=== PATIENT | female | born 1990 | race Caucasian/White ===

== ENCOUNTER 2016-10-07 22:12 | Inpatient (IN) | payer BC, OTHER ==
[~2016-10-07] VITALS: Ht 149.9 cm; Wt 49.9 kg
--- NOTE | 2016-10-07 22:25 | NUR ---
PREADMISSION NOTE Pt is a 26 y/o female being admitted for Heroin, Xanax, and Meth dependence and use. Pt denies having any allergies or seizure history. Pt is calm and cooperative with no signs of intoxication. Pt was informed about smoking passes and vital signs being taken every 4 hours. Pt verbalized an understanding. Pt was given an opportunity to ask questions and express any concerns. Vitals are as follows: 118/75 HR:83 R:18 T:98.6 O2 SAT: 100 % Pain: 0/10. Pt is in stable condition and will be accompanied to the 3rd floor where the rest of the admission process will continue.
[2016-10-07 23:04] LABS: *AMPHETAMINE, URINE POSITIVE (NEGATIVE); *BARBITURATE, URINE NEGATIVE (NEGATIVE); *CANNABINOID, URINE NEGATIVE (NEGATIVE); *COCCAINE, URINE NEGATIVE (NEGATIVE); *OPIATE, URINE POSITIVE (NEGATIVE); *PHENCYCLIDINE SCREEN,URINE NEGATIVE (NEGATIVE)
[2016-10-07 23:21] LABS: *URINE HCG, QUAL NEGATIVE (NEGATIVE)
[2016-10-07] MEDS ORDERED: MAGNESIUM HYDROXIDE 30 ML LIQUID UDC PO PRN (23:45)
[2016-10-07] MEDS ORDERED: ONDANSETRON 4 MG/2 ML VIAL IM PRN (23:45)
[2016-10-07] MEDS ORDERED: LORAZEPAM 1 MG TABLET PO PRN ×2 (23:45)
[2016-10-07] MEDS ORDERED: MIRALAX 17 GM POWD.PACK PO PRN (23:45)
[2016-10-07] MEDS ORDERED: HYDROXYZINE PAMOATE 25 MG CAPSULE PO PRN (23:45)
[2016-10-07] MEDS ORDERED: LORAZEPAM 2 MG/1 ML VIAL IM PRN (23:45)
[2016-10-07] MEDS ORDERED: METHOCARBAMOL 750 MG TABLET PO PRN (23:45)
[2016-10-07] MEDS ORDERED: ONDANSETRON ODT 4 MG TAB.RAPDIS SL PRN (23:45)
[2016-10-07] MEDS ORDERED: ACETAMINOPHEN 325 MG TABLET PO PRN (23:45)
[2016-10-07] MEDS ORDERED: IBUPROFEN 400 MG TABLET PO PRN (23:45)
[2016-10-07] MEDS ORDERED: LOPERAMIDE HCL 2 MG CAPSULE PO PRN ×2 (23:45)
[2016-10-07] MEDS ORDERED: DICYCLOMINE HCL 20 MG TABLET PO PRN (23:45)
--- NOTE | 2016-10-07 23:56 | NUR ---
ADMISSION NOTE Pt arrived ambulatory to the [facility] 3rd floor (accompanied by [facility] staff) at approximately 2247. Pt is a 26 y/o female being admitted for Heroin, Xanax, and Methamphetamine dependence and use. Pt denies having any allergies but reported a PMH of depression, anxiety, borderline personality disorder, and insomnia. Pt reported not having a primary care physician or a psych doctor at this time. Pt is unmarried with 2 children. Pt stated " I have my GED. I'm not working right now and I guess I'm homeless." Pt was recently jailed. MRSA was collected and sent to the lab for testing. Pt didn't arrive with any medications, but reported taking Wellbutrin, Lamictal, Remeron, and Trazodone. Pt stated " I haven't taken them in about 2 months." Pt was then asked about her substance use history including; what substance(s), frequency, route, amount, last date used, and last amount used. Pt stated " I started using Heroin 10 years ago, Meth 3 years ago, and Xanax 4 years ago. I use needles for the Heroin and Meth, but I just eat the Xanax (PO). For the past 8 months I've been using up to 2 grams of Heroin, half a gram of Meth (0.5 g) and 6 mg of Xanax a day. I had Heroin and Meth this morning. I used like 0.25 g of Heroin, and 0.2 g of Meth. I had 3 mg of Xanax yesterday (10/06/16). " Pt was asked about her most recent treatment history. Pt stated " I was here in [facility] in like March. Then I went to a sober living called [facility] for 20 days." Upon assessment pt is a/o x 4 with no changes in LOC. Pt's skin is dry and intact with no rashes, lesions, lacerations, bruises, and abrasions noted. Pt's breathing is even and unlabored. Lung auscultations clear in all lobes. Abdomen soft and non distended. Bowel sounds present in all 4 quadrants. PERRLA noted. Pt wears contacts. Skin turgor indicates adequate hydration and capillary refill is less than 3 seconds. Hand template cutter are strong bilaterally and pt ambulates independently with a steady gait. Pt has a flat affect, and is seemingly guarded, but is very polite and cooperative with plan of care. Pt denies any pain/discomfort at this time. Pt was encouraged to notify staff of any changes in condition or of any concerns. Pt verbalized an understanding. All safety measures in place; side rails up x 2, bed locked and in low position, and call light is within reach. Vitals are as follows: 118/75 HR:83 R:18 T:98.6 O2 SAT: 100 % Pain: 0/10 COW: 3 CIWA: 2 . Will continue to monitor.
[2016-10-08] VITALS: BP 112/62
[2016-10-08 01:27] LABS: BASOPHILS # (AUTO) 0.1 K/uL (0.0-8.0); BASOPHILS % (AUTO) 0.9 % (0.0-2.0); EOSINOPHILS # (AUTO) 0.2 K/uL (0.0-0.7); EOSINOPHILS % (AUTO) 2.4 % (0.0-7.0); HEMATOCRIT 36.3 % (37-47); HEMOGLOBIN 12.4 G/DL (12.0-16.0); LYMPHOCYTES # (AUTO) 3.9 K/UL (0.8-4.8); LYMPHOCYTES % (AUTO) 39.5 % (20.5-51.5); MEAN CORPUSCULAR HEMOGLOBIN 28.2 UUG (27.0-31.0); MEAN CORPUSCULAR HGB CONC 34 g/dL (32.0-37.0); MEAN CORPUSCULAR VOLUME 82.3 FL (81.0-99.0); MONOCYTES # (AUTO) 0.6 K/UL (0.1-1.30); MONOCYTES % (AUTO) 6.2 % (0.0-11.0); NEUTROPHILS # (AUTO) 5.2 K/UL (1.8-8.9); PLATELET COUNT (AUTO) 383 K/UL (150-450)
[2016-10-08] MEDS: CLONIDINE HCL 0.1 MG TABLET PO PRN (01:38)
--- NOTE | 2016-10-08 01:39 | NUR ---
CLONIDINE PRN ADMINISTRATION Pt stated " I feel anxious and restless. Can I have something to help me relax?" Clonidine 0.1 mg PO PRN was given. Pt was encouraged to notify staff of any changes in condition or of any concerns. Pt verbalized an understanding. All safety measures in place. Will monitor for effectiveness.
[2016-10-08 01:45] LABS: ETHANOL < 3 MG/DL (0-0)
[2016-10-08 01:54] LABS: ALANINE AMINOTRANSFERASE 16 U/L (14-59); ALKALINE PHOSPHATASE 80 U/L (50-136); AMYLASE 71 U/L (25-115); ASPARTATE AMINOTRANSFERASE 11 U/L (15-37); BILIRUBIN,TOTAL 0.1 mg/dL (0.2-1.0); CARBON DIOXIDE 25 mmol/L (21-32); CHLORIDE 106 mmol/L (98-107); CREATININE 0.8 mg/dL (0.6-1.3); GLUCOSE 106 mg/dL (74-106); LIPASE 422 U/L (73-393); POTASSIUM 3.6 mmol/L (3.5-5.1); TOTAL PROTEIN, SERUM 6.9 g/dL (6.4-8.2); UREA NITROGEN, BLOOD 15 mg/dL (7-18)
[2016-10-08 02:02] LABS: THYROID STIMULATING HORMONE 0.379 mIU/mL (0.358-3.740)
--- NOTE | 2016-10-08 02:39 | NUR ---
CLONIDINE PRN REASSESSMENT Pt stated " I feel better. I'm falling asleep now." PRN was effective. All safety measures in place. Will monitor for effectiveness
[2016-10-08 04:00] VITALS: BP 106/51
--- NOTE | 2016-10-08 04:00 | NUR ---
COW AND CIWA DEFERRED Pt is asleep at this time. Assessment deferred until patient is awake. Will continue to monitor.
--- NOTE | 2016-10-08 06:46 | NUR ---
END OF SHIFT NOTE Pt is a 26 y/o female being admitted for Heroin, Xanax, and Methamphetamine dependence and use. Pt denies having any allergies but reported a PMH of depression, anxiety, borderline personality disorder, and insomnia. Pt is not on a taper at this time, but has PRN medications for any discomfort. Pt received Clonidine 0.1 mg PO PRN during the shift. Pt slept for a total of 5 hours. Last COW:5 CIWA:2 (0000). No changes in condition. All safety measures in place. Will endorse to the oncoming nurse.
--- NOTE | 2016-10-08 07:55 | NUR ---
START OF SHIFT NOTE Received report from night nurse, 26 year old female admitted for Heroin, Benzo, and Methamphetamine dependence. Pt reported a PMH of depression, anxiety, borderline personality disorder, and insomnia. Pt is not on a taper at this time, but has PRN medications for any discomfort. 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 Currently pt is asleep in bed with no signs of discomfort/distress noted responsive to verbal and tactile stimuli. Breathing normal no SOB noted. Safety measures in place, Call light within reach. Will continue to monitor.
[2016-10-08 08:00] VITALS: BP 105/66
[2016-10-08] MEDS ORDERED: TUBERCULIN,PURIF.PROT.DERIV. 5 TU/0.1 ML TEST ID ONE (09:00)
[2016-10-08] MEDS: MULTIVITAMINS,THERAPEUTIC TABLET PO SCH (09:13)
--- NOTE | 2016-10-08 09:30 | NUR ---
PRN MEDICATION Patient c/o runny nose, chills, sweats, anxiety, restless, yawning and body aches. COWS 15 CIWA 11. 4 mg Subutex and 2 mg Ativan administered. Will cont to monitor and reassess
[2016-10-08] MEDS: BUPRENORPHINE HCL 2 MG TAB.SUBL SL PRN ×2 (09:38→15:11)
--- NOTE | 2016-10-08 10:00 | NUR ---
PRN REASSESSMENT COWS decreased to 8. patient reported medication effective and feeling much better
--- NOTE | 2016-10-08 10:30 | NUR ---
PRN ATIVAN REASSESSMENT CIWA decreased to 6. Patient reports feeling better. Anxiety decreased.Will cont to monitor.
[2016-10-08] MEDS ORDERED: LORAZEPAM 1 MG TABLET PO ONE (11:00)
[2016-10-08 12:00] VITALS: BP 113/65
[2016-10-08] MEDS: LORAZEPAM 1 MG TABLET PO SCH ×3 (13:30→21:46)
[2016-10-08] MEDS: GABAPENTIN 300 MG CAPSULE PO SCH (14:17)
--- NOTE | 2016-10-08 15:11 | NUR ---
PRN SUBUTEX Patient c/o runny nose, chills, sweats, anxiety, restless, yawning and body aches. COWS 12, 4 mg Subutex administered as ordered. Will cont to monitor and reassess
--- NOTE | 2016-10-08 15:39 | NUR ---
SUBUTEX REASSESSMENT Pt reported medication effective withdrawal symptoms decreased, COWS score noted 7.
[2016-10-08 16:00] VITALS: BP 102/60
--- NOTE | 2016-10-08 17:00 | NUR ---
ATIVAN HELD Pt noted to be too sedated, responsive to verbal and tactile stimuli, Ativan 2mg held as ordered. notified.
--- NOTE | 2016-10-08 19:17 | NUR ---
END OF SHIFT NOTE Gave report to night nurse, 26 year old female being admitted for Heroin, Xanax, and Methamphetamine dependence and use. Pt denies having any allergies but reported a PMH of depression, anxiety, borderline personality disorder, and insomnia. Pt started on Ativan taper tolerating well. Pt was given PRN Subutex/Ativan taper noted to be effective. Last CIWA-5, COWS-7. Pt attended some groups and activities. Pt remained compliant with care and medications. During shift pt was seen by MD Hansen, and Psychiatrist. Pt noted with right eye redness, notified new order for Erythromycin oint. Safety measures in place, Call light within reach. Pt endorsed to night nurse in stable condition.
--- NOTE | 2016-10-08 19:25 | NUR ---
Start of Shift Patient Received. Patient is in bed sleeping. Breathing even and non labored. No signs of pain or discomfort noted. Patient is a 26 year old female admitted on 10/07/16 for Opiate and Benzo Dependence under the care of Dr. Hansen. Patient is currently receiving a 5 day Ativan taper with Subutex taper to start tomorrow morning. Patient verbalizes no known allergies, wishes to be full code, following a regular diet, placed on fall precautions, skin noted intact. Patients past medical history noted as Depression, Anxiety, Insomnia, Borderline Personality Disorder, and Bipolar. Per endorsement, Patient was given PRN Subutex and PRN Ativan for COWS of 15 and CIWA of 11 with medications noted to be effective. Patient was again given PRN Subutex for COWS of 12 with medication noted to be effective. 1700 medications held due to patient being over sedated. Patient started on erythromycin for conjunctivitis of the left eye with first dose to be administered at 2100. All needs attended to promptly. Will continue to monitor.
[2016-10-08 20:30] VITALS: BP 114/76
[2016-10-08] MEDS ORDERED: GABAPENTIN 300 MG CAPSULE PO SCH (21:00)
[2016-10-08] MEDS: ERYTHROMYCIN 0.5% OPHT OINT 3.5 GM TUBE EACHEYE SCH (21:45)
[2016-10-08] MEDS: LAMOTRIGINE 100 MG TABLET PO SCH (21:46)
[2016-10-08] MEDS: MIRTAZAPINE 15 MG TABLET PO SCH (21:46)
[2016-10-09] VITALS: BP 105/64
[2016-10-09 04:57] VITALS: BP 100/58
--- NOTE | 2016-10-09 06:53 | NUR ---
End of Shift Patient is in bed sleeping. Breathing even and non labored. No signs of pain or discomfort noted. Patient is a 26 year old female admitted on 10/07/16 for Opiate and Benzo Dependence and is currently receiving a 5 day Ativan taper and will start a 5 day Subutex taper this morning 10/09/16. No PRN Medications administered. Will endorse to continue plan of care as ordered.
[2016-10-09 08:00] VITALS: BP 102/88
--- NOTE | 2016-10-09 08:11 | NUR ---
START OF SHIFT NOTE Received report from night nurse, 26 year old female admitted for Heroin, Benzo, and Methamphetamine dependence. Pt reported a PMH of depression, anxiety, borderline personality disorder, and insomnia. cont with Ativan taper tolerating well. Pt received Clonidine 0.1 mg PO PRN during shift stacker, slept for 10 hours, Last COWS-6, CIWA-6. Currently pt is asleep in bed with no signs of discomfort/distress noted responsive to verbal and tactile stimuli. Breathing normal no SOB noted. Safety measures in place, Call light within reach. Will continue to monitor.
[2016-10-09] MEDS: MULTIVITAMINS,THERAPEUTIC TABLET PO SCH (09:02)
[2016-10-09] MEDS: GABAPENTIN 300 MG CAPSULE PO SCH ×3 (09:02→21:37)
[2016-10-09] MEDS: LORAZEPAM 1 MG TABLET PO SCH ×3 (09:02→21:38)
[2016-10-09] MEDS: LAMOTRIGINE 100 MG TABLET PO SCH ×2 (09:02→21:37)
[2016-10-09] MEDS: BUPRENORPHINE HCL 2 MG TAB.SUBL SL SCH ×4 (09:03→21:37)
[2016-10-09] MEDS: ERYTHROMYCIN 0.5% OPHT OINT 3.5 GM TUBE EACHEYE SCH ×3 (09:03→21:34)
[2016-10-09 12:00] VITALS: BP 133/87
--- NOTE | 2016-10-09 12:39 | NUR ---
PRN MOTRIN Pt c/o of right eye pain 4/. Pt medicated with Motrin 400mg Po as ordered. Will cont to monitor and reassess.
--- NOTE | 2016-10-09 13:39 | NUR ---
REASSESSMENT Pt reported medication effective pain decreased to 2/10. Will cont to monitor.
[2016-10-09 14:08] LABS: HEPATITIS B SURFACE AG Negative (Negative)
[2016-10-09] MEDS: ACETAMINOPHEN ES 500 MG TABLET PO SCH ×2 (14:26→21:40)
[2016-10-09] MEDS: METHOCARBAMOL 750 MG TABLET PO SCH (14:45)
[2016-10-09 16:00] VITALS: BP 99/62
--- NOTE | 2016-10-09 19:18 | NUR ---
END OF SHIFT NOTE Pt cont with Ativan taper and started Subutex taper this morning tolerating well. Pt was given PRN Motrin noted to be effective. Last CIWA-6, COWS-5. Pt cont with Erythromycin for right eye redness. Pt attended some groups and activities. Pt remained compliant with care and medications. During shift pt was seen by MD Hansen, and Psychiatrist. Safety measures in place, Call light within reach. Pt endorsed to night nurse in stable condition.
--- NOTE | 2016-10-09 19:30 | NUR ---
START OF SHIFT Pt is 26 year old female admitted for Heroin, Benzo, and Methamphetamine dependence. Pt reported a PMH of depression, anxiety, borderline personality disorder, and insomnia. Pt is placed on Ativan taper, tolerating well. Last COWS-5, CIWA-6. A/O X 4,on regular diet,full code status,NKA. .Received in stable condition. All needs have been met. All safety measures in place per hospital policy. Bed locked and in lowest position, side rails up x2 and padded, call light within reach. Will continue to monitor.
[2016-10-09 20:00] VITALS: BP 117/82
[2016-10-09] MEDS: MIRTAZAPINE 15 MG TABLET PO SCH (21:37)
[2016-10-09] MEDS: KETOROLAC TROMETHAMINE 30 MG INJ IM PRN (22:03)
--- NOTE | 2016-10-09 22:05 | NUR ---
PRN TORADOL IM GIVEN ORDERED FOR C/O GENERALIZED BODYACHE PER PT REQUEST.PAIN LEVEL = 8/10.WILL MONITOR.
--- NOTE | 2016-10-09 23:05 | NUR ---
PRN F/U PT VERBALIZES RELIEF FROM PAIN.PRN IS EFFECTIVE.WILL CONTINUE TO MONITOR.
[2016-10-10] VITALS: BP 127/81
[2016-10-10] MEDS: METHOCARBAMOL 750 MG TABLET PO SCH ×4 (00:38→23:21)
[2016-10-10] MEDS: ERYTHROMYCIN 0.5% OPHT OINT 3.5 GM TUBE EACHEYE SCH ×4 (01:45→21:03)
[2016-10-10 04:00] VITALS: BP 105/68
[2016-10-10] MEDS: ACETAMINOPHEN ES 500 MG TABLET PO SCH ×3 (05:45→21:04)
--- NOTE | 2016-10-10 06:45 | NUR ---
END OF SHIFT Pt is 26 year old female admitted for Heroin, Benzo, and Methamphetamine dependence. Pt reported a PMH of depression, anxiety, borderline personality disorder, and insomnia. Pt is placed on Ativan taper, tolerating well. Last COWS-2, CIWA-2. A/O X 4,on regular diet,full code status,NKA. PRN Toradol was given for pain with good effect.Pt slept 8 hrs,fluid intake was 1291 mls,voided x 2. All needs have been met. All safety measures in place per hospital policy. Bed locked and in lowest position, side rails up x2 and padded, call light within reach. Will endorse care to day shift nurse.
--- NOTE | 2016-10-10 07:51 | NUR ---
START OF SHIFT NOTE Received report from night nurse, 26 year old female admitted for Heroin, Benzo, and Methamphetamine dependence. Pt reported a PMH of depression, anxiety, borderline personality disorder, and insomnia. cont with Ativan taper/Subutex taper tolerating well. 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 Upon assessment pt is alert & oriented x4. No shortness of breath noted. Respiration even & unlabored. Abdomen soft & non-distended. No nausea/vomiting noted. Patient denies pain/discomfort. Pt educated with plan of care and medication regimen with good verbal understanding. Safety measures in place, Call light within reach. Will cont to monitor.
[2016-10-10 08:00] VITALS: BP 112/70
[2016-10-10] MEDS: MULTIVITAMINS,THERAPEUTIC TABLET PO SCH (08:55)
[2016-10-10] MEDS: LAMOTRIGINE 100 MG TABLET PO SCH ×2 (08:55→21:04)
[2016-10-10] MEDS: LORAZEPAM 1 MG TABLET PO SCH ×4 (08:55→21:04)
[2016-10-10] MEDS: GABAPENTIN 300 MG CAPSULE PO SCH ×3 (08:55→21:04)
[2016-10-10] MEDS: BUPRENORPHINE HCL 2 MG TAB.SUBL SL SCH ×3 (08:56→21:04)
[2016-10-10 12:00] VITALS: BP 121/88
[2016-10-10] MEDS: CLONIDINE HCL 0.1 MG TABLET PO PRN (12:47)
--- NOTE | 2016-10-10 12:47 | NUR ---
PRN CLONIDINE Pt c/o of anxiety, chills,sweats. PRN Clonidine 0.1mg administered as ordered. Will cont to monitor and reassess.
[2016-10-10] MEDS: KETOROLAC TROMETHAMINE 30 MG INJ IM PRN (13:12)
--- NOTE | 2016-10-10 13:12 | NUR ---
PRN TORADOL Pt c/o of back pain 11/02. PRN Toradol IM administered as ordered. Will cont to monitor and reassess.
--- NOTE | 2016-10-10 13:47 | NUR ---
REASSESSMENT Upon reassessment pt reported medication effective, anxiety/chills subside and sweats decreased.
--- NOTE | 2016-10-10 13:52 | NUR ---
REASSESSMENT Pt reported medication effective pain decreased to 2/10. Will cont to monitor.
[2016-10-10] MEDS ORDERED: MECLIZINE HCL 25 MG TABLET PO PRN (14:00)
[2016-10-10 16:00] VITALS: BP 106/64
--- NOTE | 2016-10-10 19:20 | NUR ---
END OF SHIFT NOTE Pt cont with Ativan taper and Subutex taper tolerating well. Pt was given PRN Toradol/Clonidine noted to be effective. Last CIWA-5, COWS-5. Pt cont with Erythromycin for right eye redness. Pt attended some groups and activities. Pt remained compliant with care and medications. During shift pt was seen by MD Hansen, and Psychiatrist. Safety measures in place, Call light within reach. Pt endorsed to night nurse in stable condition.
--- NOTE | 2016-10-10 19:30 | NUR ---
START OF SHIFT Pt is 26 year old female admitted for Heroin, Benzo, and Methamphetamine dependence. Pt reported a PMH of depression, anxiety, borderline personality disorder, and insomnia. Pt is placed on Ativan taper, tolerating well. Pt continues with Erythromycin for right eye redness. Last COWS-5, CIWA-5. A/O X 4,on regular diet,full code status,NKA. All needs met. All safety measures in place per hospital policy. Bed locked and in lowest position, side rails up x2 and padded, call light within reach. Will continue to monitor.
[2016-10-10 20:00] VITALS: BP 120/85
--- NOTE | 2016-10-10 21:00 | NUR ---
DR GALLOWAY NOTIFIED OF PT'S ELEVATED HEART RATE AND BREATHING.BX=049,RESPIRATION=28.ALSO PT C/O TIGHTNESS IN HER CHEST AND COUGHING UP DARK COLORED PHLEGM.DR GALLOWAY MADE AWARE.WAITING FOR ORDERS.
[2016-10-10] MEDS: MIRTAZAPINE 15 MG TABLET PO SCH (21:04)
--- NOTE | 2016-10-10 22:15 | NUR ---
CHEST X-RAY AND BLOOD DRAW DONE FOR BLOOD TESTS ORDERED.
[2016-10-10 22:31] LABS: BASOPHILS # (AUTO) 0.2 K/uL (0.0-8.0); BASOPHILS % (AUTO) 1.8 % (0.0-2.0); EOSINOPHILS # (AUTO) 0.3 K/uL (0.0-0.7); EOSINOPHILS % (AUTO) 2.4 % (0.0-7.0); HEMATOCRIT 36.8 % (37-47); HEMOGLOBIN 12.9 G/DL (12.0-16.0); LYMPHOCYTES % (AUTO) 45.5 % (20.5-51.5); MEAN CORPUSCULAR HEMOGLOBIN 29.1 UUG (27.0-31.0); MEAN CORPUSCULAR HGB CONC 35 g/dL (32.0-37.0); MEAN CORPUSCULAR VOLUME 82.7 FL (81.0-99.0); MONOCYTES # (AUTO) 0.9 K/UL (0.1-1.30); MONOCYTES % (AUTO) 7.8 % (0.0-11.0); NEUTROPHILS # (AUTO) 4.7 K/UL (1.8-8.9); NEUTROPHILS % (AUTO) 42.5 % (38.5-71.5); PLATELET COUNT (AUTO) 393 K/UL (150-450); RED BLOOD CELL COUNT(AUTO) 4.44 MIL/UL (4.2-5.4); WHITE BLOOD COUNT (AUTO) 11.1 K/UL (4.0-11.2)
[2016-10-10 22:42] LABS: CREATININE 0.9 mg/dL (0.6-1.3); POTASSIUM 4.3 mmol/L (3.5-5.1)
[2016-10-10] MEDS ORDERED: GUAIFENESIN SUGAR FREE 100 MG/5 ML UDC PO PRN (23:00)
[2016-10-10] MEDS: diphenhydrAMINE 50 MG CAPSULE PO PRN (23:21)
--- NOTE | 2016-10-10 23:22 | NUR ---
PRN BENADRYL GIVEN ORDERED FOR INSOMNIA.WILL MONITOR.
[2016-10-11] VITALS: BP 102/64
--- NOTE | 2016-10-11 00:22 | NUR ---
PRN F/U PT IS IN DEEP SLEEP.BREATHING IS EVEN AND NON LABORED.NO S/S OF DISTRESS NOTED.
[2016-10-11] MEDS: ERYTHROMYCIN 0.5% OPHT OINT 3.5 GM TUBE EACHEYE SCH ×4 (01:45→20:22)
[2016-10-11 04:00] VITALS: BP 114/70
[2016-10-11] MEDS: ACETAMINOPHEN ES 500 MG TABLET PO SCH ×3 (06:20→21:45)
--- NOTE | 2016-10-11 06:47 | NUR ---
END OF SHIFT Pt is 26 year old female admitted for Heroin, Benzo, and Methamphetamine dependence. Pt reported a PMH of depression, anxiety, borderline personality disorder, and insomnia. Pt is placed on Ativan taper, tolerating well. Pt continues with Erythromycin for right eye redness. Last COWS-3, CIWA-3. A/O X 4,on regular diet,full code status,NKA.PRN Benadryl was given for insomnia .Pt slept 6 hrs,fluid intake was 855 mls,voided x 2. All needs met. All safety measures in place per hospital policy. Bed locked and in lowest position, side rails up x2 and padded, call light within reach. Will continue to monitor.
[2016-10-11 08:00] VITALS: BP 140/89
--- NOTE | 2016-10-11 08:00 | NUR ---
START OF SHIFT NOTE Received report from night nurse, 26 year old female admitted for Heroin, Benzo, and Methamphetamine dependence. Pt reported a PMH of depression, anxiety, borderline personality disorder, and insomnia. cont with Ativan taper/Subutex taper tolerating well. 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 Upon assessment pt is alert & oriented x4. No shortness of breath noted. Respiration even & unlabored. Abdomen soft & non-distended. No nausea/vomiting noted. Patient denies pain/discomfort. Pt educated with plan of care and medication regimen with good verbal understanding. Safety measures in place, Call light within reach. Will cont to monitor.
[2016-10-11] MEDS: METHOCARBAMOL 750 MG TABLET PO SCH ×3 (08:23→23:25)
[2016-10-11] MEDS: MULTIVITAMINS,THERAPEUTIC TABLET PO SCH (08:23)
[2016-10-11] MEDS: LAMOTRIGINE 100 MG TABLET PO SCH ×2 (08:23→20:40)
[2016-10-11] MEDS: LORAZEPAM 1 MG TABLET PO SCH ×3 (08:24→20:41)
[2016-10-11] MEDS: GABAPENTIN 300 MG CAPSULE PO SCH ×3 (08:24→20:41)
[2016-10-11] MEDS ORDERED: BUPRENORPHINE HCL 2 MG TAB.SUBL SL SCH (09:00)
[2016-10-11 12:00] VITALS: BP 124/73
--- NOTE | 2016-10-11 13:06 | NUR ---
REFUSED TYLENOL Pt refused Tylenol 1000mg Po, offered x3 risk and benefits explained. notified. Will cont to monitor.
[2016-10-11] MEDS: BUPRENORPHINE HCL 2 MG TAB.SUBL SL SCH ×2 (14:30→20:41)
[2016-10-11] MEDS: KETOROLAC TROMETHAMINE 30 MG INJ IM PRN ×2 (15:39→23:26)
--- NOTE | 2016-10-11 15:39 | NUR ---
PRN TORADOL Pt c/o of back pain 10/02. PRN Toradol IM administered as ordered. Will cont to monitor and reassess.
[2016-10-11 15:41] LABS: *AMPHETAMINE, URINE NEGATIVE (NEGATIVE); *BARBITURATE, URINE NEGATIVE (NEGATIVE); *CANNABINOID, URINE NEGATIVE (NEGATIVE); *COCCAINE, URINE NEGATIVE (NEGATIVE); *OPIATE, URINE POSITIVE (NEGATIVE); *PHENCYCLIDINE SCREEN,URINE NEGATIVE (NEGATIVE)
--- NOTE | 2016-10-11 15:45 | NUR ---
PRN IMODIUM Pt reported x2 episode of diarrhea, PRN Imodium administered as ordered. Will cont to monitor and reassess.
[2016-10-11 16:00] VITALS: BP 112/81
--- NOTE | 2016-10-11 16:12 | NUR ---
REASSESSMENT Pt reported medication effective pain decreased to 2/10. Will cont to monitor.
--- NOTE | 2016-10-11 16:45 | NUR ---
REASSESSMENT Pt reported medication effective. no episode of diarrhea reported by the pt.
--- NOTE | 2016-10-11 18:54 | NUR ---
END OF SHIFT NOTE Pt cont with Ativan taper and Subutex taper tolerating well. Pt was given PRN Toradol/Imodium noted to be effective. Last CIWA-6, COWS-9. Pt cont with Erythromycin for right eye redness. Pt attended some groups and activities. Pt refused her scheduled Tylenol at 1500, MD notified. During shift pt was seen by MD Hansen, and Psychiatrist. Safety measures in place, Call light within reach. Pt endorsed to night nurse in stable condition.
[2016-10-11 20:00] VITALS: BP 126/92
--- NOTE | 2016-10-11 20:00 | NUR ---
Start of Shift Note: Report received from day shift nurse. Pt is a 26 Y/O female admitted on 10/07/2016 for medically-supervised withdrawal from opiates, benzodiazepines, and stimulants. Pt reports using 2gm IV heroin, 6mg Xanax, and 0.5gm methamphetamine daily for eight months. Pt is on a 5-day Ativan and Subutex tapers. Pt received with last COWS=9, CIWA=6, and PRN Toradol and PRN Imodium were given during day shift. Full code, NKA, on a regular diet. Pt reports PMHx: depression, anxiety, insomnia, borderline personality DO, bipolar DO. Pt received in room and reports diaphoresis, chills, pain, anxiety. Bed is in low position and locked, side rails up x2, call light within reach. Will continue to monitor.
[2016-10-11] MEDS: MIRTAZAPINE 15 MG TABLET PO SCH (20:41)
--- NOTE | 2016-10-11 21:45 | NUR ---
Tylenol Refused: Patient refuses 21:45 scheduled dose of Tylenol. Patient educated on risks and benefits but continued to refuse. Will continue to monitor.
[2016-10-11] MEDS: diphenhydrAMINE 50 MG CAPSULE PO PRN (23:25)
--- NOTE | 2016-10-11 23:30 | NUR ---
PRN'S TORADOL, BENADRYL, MAALOX: PATIENT COMPLAINS OF 9/10 RIGHT FLANK/BACK PAIN. ADMINISTERED PRN TORADOL IM ORDERED. PATIENT COMPLAINS OF INABILITY TO SLEEP. ADMINISTERED PRN BENADRYL ORDERED. PATIENT COMPLAINS OF HEARTBURN. ADMINISTERED PRN MAALOX ORDERED. WILL CONTINUE TO MONITOR.
[2016-10-11] MEDS: MAG HYDROX/AL HYDROX/SIMETH 30 ML LIQUID UDC PO PRN (23:34)
[2016-10-12] VITALS: BP 111/69
--- NOTE | 2016-10-12 | NUR ---
COWS/CIWA DEFERRED: COWS AND CIWA ARE DEFERRED FOR SLEEP. V/S STABLE. ALL SAFETY PRECAUTIONS ARE IN PLACE. WILL CONTINUE TO MONITOR. Addendum: 10/12/16 at 0124 by CECIL TERRAZAS RN Amended: Links added.
--- NOTE | 2016-10-12 00:30 | NUR ---
PRN REASSESSMENT: PATIENT IS IN BED WITH EYES CLOSED. RESPIRATIONS ARE EVEN AND UNLABORED. NO S/S OF ACUTE DISTRESS NOTED. PRN'S TORADOL, BENADRYL, AND MAALOX EFFECTIVE AEB PATIENT'S ABILITY TO REST. WILL CONTINUE TO MONITOR.
[2016-10-12] MEDS: ERYTHROMYCIN 0.5% OPHT OINT 3.5 GM TUBE EACHEYE SCH ×4 (01:45→21:34)
--- NOTE | 2016-10-12 01:45 | NUR ---
Erythromycin Refused: Patient refuses 01:45 scheduled erythromycin ointment. Patient states that she wants to sleep. Patient educated on risks/benefits but still refused.
[2016-10-12 04:00] VITALS: BP 109/64
--- NOTE | 2016-10-12 04:00 | NUR ---
COWS/CIWA Deferred: COWS and CIWA are deferred for sleep. V/S stable. All safety precautions are in place. Will continue to monitor. Addendum: 10/12/16 at 0437 by CECIL TERRAZAS RN Amended: Links added.
[2016-10-12] MEDS: ACETAMINOPHEN ES 500 MG TABLET PO SCH ×3 (05:45→21:45)
--- NOTE | 2016-10-12 05:45 | NUR ---
Tylenol Refused: Patient refuses 05:45 scheduled Tylenol. Patient educated on risks and benefits but still refused. Will continue to monitor.
--- NOTE | 2016-10-12 07:06 | NUR ---
Start of Shift Endorsement received from nightshift nurse. Pt is a 26 y/o female admitted for Heroin, meth and xanax dependence. PT has been placed on a 5 day Ativan and 5 day Subutex taper. Pt is moderately withdrawing at this time AEB COWS 8, CIWA 7. Pt receievd PRN Toradol, Benadryl and Maalox. Pt reports sleeping 7 hours. VS WNL. Full Code. PT is alert and oriented x4. Pt is in STABLE condition at this time. Remains compliant with medication and diet regimen. All needs have been met, All safety measures in place per hospital policy. Bed in lowest position, side rails up x2, call-light within reach. Will continue to monitor
--- NOTE | 2016-10-12 07:34 | NUR ---
End of Shift Note: Pt is a 26 Y/O female admitted to [facility] on 10/07/2016 for medically-supervised withdrawal from opiates, benzodiazepines, and stimulants. Pt reports a PMHx of depression, anxiety, insomnia, borderline personality DO, and bipolar DO. Pt is a full code. Pt reports NKA. Pt is on a regular diet. Pt reported using 2gm IV heroin, 6mg Xanax, and 0.5gm methamphetamine daily for eight months, and was placed on 5-day Ativan and Subutex tapers. Scheduled medication regime effectively managed s/s of withdrawal this shift. Last COWS=6, CIWA=5 at 20:00 before taper medications were administered. PRN Toradol was given for flank pain, and PRN Maalox was given for heartburn. V/S stable throughout shift, with tachycardia. Total fluid intake this shift: 1301 ml oral; output: urine x 2 and BM x 0. PRN Benadryl was given for inability to sleep, which was effective and pt slept 6 hours this shift. Pt is currently in bed, all needs have been attended and met. Pt endorsed to day shift nurse.
[2016-10-12 08:06] VITALS: BP 118/68
[2016-10-12] MEDS: METHOCARBAMOL 750 MG TABLET PO SCH ×3 (08:22→23:34)
[2016-10-12] MEDS: MULTIVITAMINS,THERAPEUTIC TABLET PO SCH (08:22)
[2016-10-12] MEDS: LAMOTRIGINE 100 MG TABLET PO SCH ×2 (08:22→21:37)
[2016-10-12] MEDS: GABAPENTIN 300 MG CAPSULE PO SCH ×3 (08:23→21:37)
[2016-10-12] MEDS: LORAZEPAM 1 MG TABLET PO SCH ×2 (08:23→21:36)
[2016-10-12] MEDS ORDERED: BUPRENORPHINE HCL 2 MG TAB.SUBL SL ONE (09:00)
[2016-10-12 12:00] VITALS: BP 132/90
[2016-10-12 14:46] LABS: BASOPHILS # (AUTO) 0.2 K/uL (0.0-8.0); BASOPHILS % (AUTO) 1.6 % (0.0-2.0); EOSINOPHILS # (AUTO) 0.2 K/uL (0.0-0.7); EOSINOPHILS % (AUTO) 2.4 % (0.0-7.0); HEMOGLOBIN 13.1 G/DL (12.0-16.0); LYMPHOCYTES # (AUTO) 4.4 K/UL (0.8-4.8); LYMPHOCYTES % (AUTO) 43.3 % (20.5-51.5); MEAN CORPUSCULAR HEMOGLOBIN 28.5 UUG (27.0-31.0); MEAN CORPUSCULAR HGB CONC 35 g/dL (32.0-37.0); MEAN CORPUSCULAR VOLUME 82.3 FL (81.0-99.0); MONOCYTES # (AUTO) 0.9 K/UL (0.1-1.30); MONOCYTES % (AUTO) 8.6 % (0.0-11.0); NEUTROPHILS # (AUTO) 4.5 K/UL (1.8-8.9); NEUTROPHILS % (AUTO) 44.1 % (38.5-71.5); PLATELET COUNT (AUTO) 430 K/UL (150-450); RED BLOOD CELL COUNT(AUTO) 4.62 MIL/UL (4.2-5.4); WHITE BLOOD COUNT (AUTO) 10.2 K/UL (4.0-11.2)
[2016-10-12 15:02] LABS: CREATININE 0.8 mg/dL (0.6-1.3)
[2016-10-12 15:08] LABS: POTASSIUM 4.5 mmol/L (3.5-5.1)
[2016-10-12] MEDS: BUPRENORPHINE HCL 2 MG TAB.SUBL SL SCH ×2 (15:19→21:38)
[2016-10-12 16:00] VITALS: BP 119/85
--- NOTE | 2016-10-12 18:52 | NUR ---
End of Shift Endorsement given to nightshift nurse. Pt is a 26 y/o female admitted for Heroin, meth and xanax dependence. PT has been placed on a 5 day Ativan and 5 day Subutex taper. Pt is moderately withdrawing at this time AEB COWS 7, CIWA 2. Pt Did not receive any PRN medications. Educated pt on medication and diet regimen. Encouraged pt to participate in groups and activities. PT participated in groups and activities. Intake: 1300ml, Void x3, BM x1. VS WNL. Full Code. PT is alert and oriented x4. Pt is in STABLE condition at this time. Remains compliant with medication and diet regimen. All needs have been met, All safety measures in place per hospital policy. Bed in lowest position, side rails up x2, call-light within reach. Will continue to monitor
[2016-10-12 20:00] VITALS: BP 127/86
--- NOTE | 2016-10-12 20:00 | NUR ---
Start of Shift Note: Report received from day shift nurse. Pt is a 26 yo female admitted on 10/07/2016 for medically-supervised withdrawal from benzodiazepines, opiates, and amphetamine. Pt reports taking 6mg Xanax, using 2gm IV heroin, and 0.5gm IV methamphetamine daily for eight months. Pt continues on 5-day Ativan and Subutex tapers. Pt received with last COWS=8, CIWA=2, and PRN Robitussin was given during day shift. Endorsed collection of urine specimen for urinalysis/culture. Pt is a full code, reports NKA, and is on a regular diet. PMHx: insomnia, depression, anxiety, borderline personality DO, and bipolar DO. Pt received in room and reports diaphoresis, generalized pain, lacrimation, and anxiety. Bed is in low position and locked, side rails up x2, call light within reach. Will continue to monitor.
[2016-10-12 20:20] LABS: *BILIRUBIN,URIN NEGATIVE (NEGATIVE); *BLOOD, URINE NEGATIVE (NEGATIVE); *CLARITY,URINE SLIGHTLY CLOUDY (CLEAR); *COLOR,URINE LIGHT YELLOW (YELLOW); *KETONES,URINE NEGATIVE (NEGATIVE); *PROTEIN,URINE NEGATIVE (NEGATIVE); *UROBILINOGEN,URINE 0.2 E.U./dl (NORMAL); LEUKOCYTE ESTERASE ,URINE 1+ (NEGATIVE); NITRITE, URINE POSITIVE (NEGATIVE); UGLUCOSE NEGATIVE (NEGATIVE)
[2016-10-12 20:31] LABS: BACTERIA,URINE MANY /HPF (NONE SEEN); RBC,URINE 0-3 /HPF (0-3); SQUAMOUS EPITHELIAL CELL,UR MODERATE /HPF (NONE SEEN); WBC,URINE 20-50 /HPF (0-3)
[2016-10-12 20:32] LABS: TRICHOMONAS,URINE PRESENT /HPF (NONE SEEN)
[2016-10-12] MEDS ORDERED: METRONIDAZOLE 500 MG TABLET PO ONE ×2 (21:00)
[2016-10-12] MEDS: KETOROLAC TROMETHAMINE 30 MG INJ IM PRN (21:36)
--- NOTE | 2016-10-12 21:36 | NUR ---
PRN Toradol: Patient complains of severe pain in right flank/lower back. Patient rates pain 9/10. Administered PRN Toradol IM as ordered.
[2016-10-12] MEDS: MIRTAZAPINE 15 MG TABLET PO SCH (21:37)
[2016-10-12] MEDS: SULFAMETH/TRIMETH 800/160 MG TABLET PO SCH (21:37)
[2016-10-12] MEDS: LACTOBACILLUS RHAMNOSUS GG 1 EACH CAPSULE PO SCH (21:37)
--- NOTE | 2016-10-12 21:45 | NUR ---
Tylenol Refused: Patient refuses 21:45 scheduled Tylenol. Patient educated on risks and benefits but still refused. Will continue to monitor.
--- NOTE | 2016-10-12 22:40 | NUR ---
PRN Reassessment: Patient reports that PRN Toradol was mildly effective at reducing back/flank pain, patient now rates pain 6/10.
[2016-10-12] MEDS: diphenhydrAMINE 50 MG CAPSULE PO PRN (23:35)
--- NOTE | 2016-10-12 23:35 | NUR ---
PRN Benadryl: Patient complains of inability to sleep. Administered PRN Benadryl as ordered. Will continue to monitor.
[2016-10-13] VITALS: BP 114/79
[2016-10-13] MEDS: ERYTHROMYCIN 0.5% OPHT OINT 3.5 GM TUBE EACHEYE SCH ×4 (01:45→19:45)
--- NOTE | 2016-10-13 01:45 | NUR ---
Erythromycin Refused: Patient refuses 01:45 erythromycin ointment administration. Patient educated on risks/benefits but still refused. Will continue to monitor.
--- NOTE | 2016-10-13 04:00 | NUR ---
Vitals Refused, COWS/CIWA Deferred: Patient refuses 04:00 V/S assessment. COWS/CIWA is deferred for sleep. No s/s of acute distress noted. All safety precautions are in place. Will continue to monitor. Addendum: 10/13/16 at 0550 by CECIL TERRAZAS RN Amended: Links added.
[2016-10-13] MEDS: ACETAMINOPHEN ES 500 MG TABLET PO SCH (05:45)
--- NOTE | 2016-10-13 05:45 | NUR ---
Tylenol Refused: Patient refuses 05:45 scheduled Tylenol. Patient educated on risks and benefits but still refused. Will continue to monitor.
--- NOTE | 2016-10-13 06:50 | NUR ---
End of Shift Note: Pt is a 26 yo female admitted to [facility] on 10/07/2016 for medically-supervised withdrawal from benzodiazepines, opiates, and amphetamine. Pt reported a PMHx of insomnia, depression, anxiety, borderline personality DO, and bipolar DO. Pt is a full code. Pt reports NKA. Pt is on a regular diet. Pt reported taking 6mg Xanax, using 2gm IV heroin, and 0.5gm IV methamphetamine daily for eight months, and was placed on 5-day Ativan and Subutex tapers. Scheduled medication regime effectively managed s/s of withdrawal this shift. Last COWS=7, CIWA=5 at 00:00. PRN Toradol was given for lower back/flank pain. V/S stable throughout shift, with tachycardia. Urine and vaginal specimens collected this shift; MD aware of results and new order for one-time Flagyl. Pt is on Bactrim for suspected pyelonephritis. Total fluid intake this shift: 855 ml oral; output: urine x 4 and BM x 0. PRN Benadryl was given for inability to sleep, which was effective and pt slept 6 hours this shift. Pt is currently in bed, all needs have been attended and met. Pt endorsed to day shift nurse.
--- NOTE | 2016-10-13 07:30 | NUR ---
START OF SHIFT NOTE Patient is alert and orientated X 4. Patient is laying in bed, respirations even and unlabored. Patient is complaining of right flank pain. Urine and vaginal specimen collected last night and MD aware of results. Patient is having tachycardia episodes with MD aware, vital signs stable besides heart rate. Patient was given Benadryl and Toradol PRN last night for pain with effectiveness. Past CIWA 6 COWS 7 per night nurse. patient slept 6 hours per night nurse. All safety measures in place, will continue to monitor patient.
[2016-10-13 08:09] VITALS: BP 85/57
[2016-10-13] MEDS: LACTOBACILLUS RHAMNOSUS GG 1 EACH CAPSULE PO SCH ×2 (08:29→20:35)
[2016-10-13] MEDS: LAMOTRIGINE 100 MG TABLET PO SCH ×2 (08:29→20:36)
[2016-10-13] MEDS: METHOCARBAMOL 750 MG TABLET PO SCH ×3 (08:29→22:30)
[2016-10-13] MEDS: GABAPENTIN 300 MG CAPSULE PO SCH ×3 (08:29→20:35)
[2016-10-13] MEDS: MULTIVITAMINS,THERAPEUTIC TABLET PO SCH (08:30)
[2016-10-13] MEDS: SULFAMETH/TRIMETH 800/160 MG TABLET PO SCH ×2 (08:30→20:36)
[2016-10-13] MEDS: BUPRENORPHINE HCL 2 MG TAB.SUBL SL SCH (08:30)
[2016-10-13] MEDS ORDERED: BUPRENORPHINE HCL 2 MG TAB.SUBL SL SCH (09:00)
[2016-10-13 12:00] VITALS: BP 120/77
--- NOTE | 2016-10-13 12:52 | NUR ---
Refused Erythromycin ointment Patient refused to take her scheduled Erythromycin eye ointment. She states,"my eye is healed".
[2016-10-13] MEDS ORDERED: METH-406 PO (13:39)
[2016-10-13] MEDS ORDERED: GABA-534 PO (13:39)
[2016-10-13] MEDS ORDERED: MECL-102 PO (13:39)
[2016-10-13] MEDS ORDERED: SULF1TAB3 PO (13:39)
[2016-10-13] MEDS ORDERED: CLON0.1T14 PO (13:39)
[2016-10-13] MEDS ORDERED: HYDR-3895 PO (13:39)
[2016-10-13] MEDS ORDERED: LAMO100T2 PO (13:39)
[2016-10-13] MEDS ORDERED: LACT1CAP57 PO (13:39)
[2016-10-13 16:00] VITALS: BP 108/63
[2016-10-13] MEDS: MAG HYDROX/AL HYDROX/SIMETH 30 ML LIQUID UDC PO PRN (16:34)
--- NOTE | 2016-10-13 16:35 | NUR ---
PRN MAALOX GIVEN Patient complaining of heart burn. Maalox given. Will continue to monitor patient.
--- NOTE | 2016-10-13 17:01 | NUR ---
PRN MAALOX REASSESSMENT Patient states heart burn has gone away. will continue to monitor
[2016-10-13] MEDS: KETOROLAC TROMETHAMINE 30 MG INJ IM PRN (17:05)
--- NOTE | 2016-10-13 17:05 | NUR ---
PRN TORADOL GIVEN Patient complaining of left flank pain. Pain reported 9 out of 10. Will continue to monitor patient.
--- NOTE | 2016-10-13 17:35 | NUR ---
PRN TORADOL REASSESSMENT Patient reports feeling a little better. states pain is 5 out of 10 after the IM shot. Will continue to monitor patient.
--- NOTE | 2016-10-13 18:48 | NUR ---
END OF SHIFT REPORT Patient is alert and orientated X 4. Patient has completed a 5 day Subutex 5 day Ativan taper. Patients last CIWA 7 COWS 2. Vital signs have been stable throughout the day. Patient has had episodes of tachycardia due to pain. Patient has been complaining of left flank pain. Patient was given Toradol IM for pain and Maalox for indigestion with effectiveness. MD is aware of patients complaints. Patient is on Bactrum PO and tolerating well. Urine was positive for Trichomonas, vaginal swab was done early this morning and results are still pending. [facility]. All safety measures in place. Will continue to monitor patient until endorse to oncoming nurse.
--- NOTE | 2016-10-13 19:12 | NUR ---
Start of shift note Received report from day shift nurse. Pt is a 26 yo F, A+Ox4, presenting to [facility] for Opiate/Benzo/Meth dependence. Pt has NKA, is on Full Code status, and on Regular diet. Pt is on Fall precautions. Pt has HX of Anxiety, depression, insomnia, borderline personality disorder, and bipolar. Pt has completed 5 day Ativan and 5 day Subutex tapers, tolerated well, and is due for discharge tomorrow. No s/s of distress noted at this time. Respirations even and unlabored. Will continue to monitor.
[2016-10-13 20:16] VITALS: BP 122/72
[2016-10-13] MEDS: MIRTAZAPINE 15 MG TABLET PO SCH (20:36)
[2016-10-13] MEDS ORDERED: METRONIDAZOLE 500 MG TABLET PO SCH (22:00)
[2016-10-13] MEDS: diphenhydrAMINE 50 MG CAPSULE PO PRN (22:30)
--- NOTE | 2016-10-13 22:30 | NUR ---
PRN Benadryl Pt c/o inability to sleep and requested for PRN Benadryl. Medication given and tolerated well. Will reassess within 1 HR. Will continue to monitor.
--- NOTE | 2016-10-13 23:25 | NUR ---
PRN Benadryl Reassessment Medication effective. Pt is resting well in bed at this time. No s/s of ASE/distress noted at this time. Respirations even and unlabored. Will continue to monitor.
[2016-10-14 00:12] VITALS: BP 124/75
[2016-10-14 00:30] LABS: *AMPHETAMINE, URINE NEGATIVE (NEGATIVE); *BARBITURATE, URINE NEGATIVE (NEGATIVE); *CANNABINOID, URINE NEGATIVE (NEGATIVE); *COCCAINE, URINE NEGATIVE (NEGATIVE); *OPIATE, URINE NEGATIVE (NEGATIVE); *PHENCYCLIDINE SCREEN,URINE NEGATIVE (NEGATIVE)
[2016-10-14] MEDS: ERYTHROMYCIN 0.5% OPHT OINT 3.5 GM TUBE EACHEYE SCH ×2 (01:45→07:45)
[2016-10-14 04:07] VITALS: BP 122/71
--- NOTE | 2016-10-14 07:05 | NUR ---
End of shit note Pt is a 26 yo female, A+Ox4, presenting to [facility] for Opiate/Benzo/Meth dependence. Pt has NKA, is on Full Code status, and on Regular diet. Pt is on Fall precautions. Pt has HX of Anxiety, depression, insomnia, borderline personality disorder, and bipolar. Pt has completed 5 day Ativan and 5 day Subutex tapers, tolerated well, and is due for discharge today. Pt was given PRN Edward @2230. Pt slept for a total of 7 HRS. Last COWS: 2 and Last CIWA: 1 @0400. No s/s of distress noted at this time. Respirations even and unlabored. Will endorse to day shift nurse.
--- NOTE | 2016-10-14 07:42 | NUR ---
START OF SHIFT NOTE Patient is alert and orientated X 4. Patient is laying in bed, respirations are even and unlabored. Vital signs have been stable throughout the night. Patient slept 7 hours last night per night nurse with last COWS 2 CIWA 1. patient was given Benadryl last night with effectiveness. Patient is going to be discharged this morning, patient states," she is ready". patient is on Flagyl for UTI and tolerating well. All safety measures in place, will continue to monitor.
--- NOTE | 2016-10-14 07:54 | NUR ---
MD communication Pt is scheduled to be discharged today, pt was seen by ID doctor last night and was ordered to be on flagyl. Pt noted to not have an RX for flagyl for discharge, notified Dr Hansen for clarification. Ordered flagyl 2g PO x 1 now. Orders placed, unable to enter orders.
[2016-10-14 08:00] VITALS: BP 116/70
[2016-10-14] MEDS: LACTOBACILLUS RHAMNOSUS GG 1 EACH CAPSULE PO SCH (08:33)
[2016-10-14] MEDS: MULTIVITAMINS,THERAPEUTIC TABLET PO SCH (08:33)
[2016-10-14] MEDS: GABAPENTIN 300 MG CAPSULE PO SCH (08:33)
[2016-10-14] MEDS: SULFAMETH/TRIMETH 800/160 MG TABLET PO SCH (08:34)
[2016-10-14] MEDS: LAMOTRIGINE 100 MG TABLET PO SCH (08:34)
[2016-10-14] MEDS: METHOCARBAMOL 750 MG TABLET PO SCH (08:34)
[2016-10-14] MEDS ORDERED: METRONIDAZOLE 500 MG TABLET PO ONE (09:00)
--- NOTE | 2016-10-14 09:52 | NUR ---
DISCHARGE NOTE Patient is in stable condition. Vital signs WNL, patient is alert and orientated X4, skin intact, patient denies any suicidal or homicidal ideations. All discharge paperwork completed dated and signed. Patient educated about discharge instructions, what to do after discharge, when to contact MD as well as the s/s reportable to MD. Patient verbalized understanding. Patient last CIWA 3 COWS 3. Patient was discharged from [facility] on 10/14/16 at 0930. Patient left the building with all of her belongings, patient did not bring any medications with her to the unit. MD has been contacted and notified of patients discharge.
== END 2016-10-14 09:35 | DRG 895 ==
LOC: SRC 22:12
PROVIDERS: ADMIT Internal Medicine; ATTEND Internal Medicine
PROC: HZ2ZZZZ Detoxification Services for Substance Abuse Treatment (ICD-10-PCS; principal; 2016-10-07)
PROC: HZ41ZZZ Group Counseling for Substance Abuse Treatment, Behavioral (ICD-10-PCS; 2016-10-08)
PROC: HZ31ZZZ Individual Counseling for Substance Abuse Treatment, Behavioral (ICD-10-PCS; 2016-10-10)
DX: F11.23 Opioid dependence with withdrawal (principal); F15.20 Other stimulant dependence, uncomplicated; N39.0 Urinary tract infection, site not specified; Z59.0 Homelessness; Z87.440 Personal history of urinary (tract) infections; N18.9 Chronic kidney disease, unspecified; Z91.19 Patient's noncompliance with other medical treatment and regimen; Z81.8 Family history of other mental and behavioral disorders; B96.20 Unspecified Escherichia coli [E. coli] as the cause of diseases classified elsewhere; A59.01 Trichomonal vulvovaginitis; H10.31 Unspecified acute conjunctivitis, right eye; H81.399 Other peripheral vertigo, unspecified ear; F41.9 Anxiety disorder, unspecified; F32.9 Major depressive disorder, single episode, unspecified; F17.210 Nicotine dependence, cigarettes, uncomplicated
CPT/HCPCS: 36415; 70030-TC; 71010; 76770; 80307; 80324; 80361; 83690; 83735; 84443; 84703; 85025; 86580; 86592; 86705; 86803; 87040; 87077; 87081; 87086; 87340; 87491; 87806; 93005; A4663; G0480; J1885; Q0163